=== PATIENT | male | born 1970 | race Caucasian/White ===

== ENCOUNTER 2017-07-30 19:39 | Emergency (ER) | payer OTHER ==
[~2017-07-30] VITALS: Ht 180.3 cm; Wt 108.0 kg
[2017-07-30 21:01] LABS: MCH 30.7 PG (29.0-34.0); MCHC 35.2 G/DL (30.0-36.0); MCV 87.1 FL (86-99); MEAN PLAT.VOLUME 9.7 uM^3 (9.0-12.4); PLATELET COUNT 309 K/uL (156-360); RBC DIS.WIDTH-CV 12.4 % (11.8-14.6); RBC DIS.WIDTH-SD 39.4 % (39-53); RED BLOOD COUNT 5.05 M/uL (4.00-5.50); WHITE BLOOD COUNT 9.8 K/uL (4.1-10.2)
[2017-07-30 21:09] LABS: CHLORIDE 106 mEq/L (99-109); POTASSIUM 4.2 mEq/L (3.7-5.4); SODIUM 140 mEq/L (136-147)
[2017-07-30 21:10] LABS: GLUCOSE 87 mg/dL (70-99)
[2017-07-30 21:12] LABS: ANION GAP 12 MEQ/L (2-14)
[2017-07-30 21:14] LABS: GFR ESTIMATE (CALCULATED) > 59 mL/min/
[2017-07-30 21:15] LABS: UREA NITROGEN (BUN) 14 mg/dL (9-23)
[2017-07-30 21:22] LABS: TROP-I INTERPRETATION NEGATIVE; TROPONIN-I < 0.01 ng/mL (0.0-0.30)
[2017-07-30 22:01] LABS: D-DIMER ELISA < 150.00 ng/mLDDU (<230)
[2017-07-30 23:07] LABS: TOTAL BILIRUBIN 0.2 mg/dL (0.0-1.0)
[2017-07-30 23:08] LABS: ALKALINE PHOSPHATASE 61 IU/L (3-129)
[2017-07-30 23:10] LABS: DIRECT BILIRUBIN 0.1 mg/dL (0.0-0.3)
[2017-07-30 23:11] LABS: LIPASE 32 U/L (1.0-51.0)
[2017-07-30 23:21] LABS: TROP-I INTERPRETATION NEGATIVE; TROPONIN-I < 0.01 ng/mL (0.0-0.30)
[2017-07-30] MEDS ORDERED: FLEXERIL10 MG PO (23:55)
[2017-07-31 00:23] VITALS: BP 110/78
== END 2017-07-31 00:20 | disposition home or self-care (01) ==
LOC: EME 19:39
PROVIDERS: Emergency Medicine
DX: R07.89 Other chest pain (principal); S16.1XXA Strain of muscle, fascia and tendon at neck level, initial encounter; X58.XXXA Exposure to other specified factors, initial encounter; I45.10 Unspecified right bundle-branch block; K76.0 Fatty (change of) liver, not elsewhere classified; Z87.891 Personal history of nicotine dependence
CPT/HCPCS: 71020; 76705; 80048; 80076; 83690; 84484; 85027; 85379; 93005; 99281; 99285